=== PATIENT | female | born 1945 | race Asian ===

== ENCOUNTER 2018-04-14 09:45 | Outpatient (CLI) | payer MEDICARE ==
--- NOTE | 2018-04-14 13:12 | XRAY Report ---
Reason: PX IN RT LOWER LEG Procedure Date: 04/14/2018 Accession Number: [id number] / [id number] Procedure: WCP - Tib/Fib RT CPT Code: FULL RESULT: EXAM: RIGHT TIBIA/FIBULA RADIOGRAPHY EXAM DATE: 04/14/2018 09:55 AM. CLINICAL HISTORY: Pain in right lower leg. COMPARISON: None. TECHNIQUE: 2 views. FINDINGS: Bones: Normal. No fracture or bone lesion. Joints: The visualized knee and ankle joints are normal. No effusions. Soft Tissues: Normal. No soft tissue swelling. IMPRESSION: Normal tibia/fibula radiography. [facility]
== END 2018-04-14 09:46 | disposition home or self-care (01) ==
LOC: DI.WCP 09:45
PROVIDERS: ATTEND Family Medicine
DX: M79.661 Pain in right lower leg (principal)

== ENCOUNTER 2020-05-23 13:46 | Outpatient (CLI) | payer MEDICARE ==
--- NOTE | 2020-05-23 15:12 | XRAY Report ---
PROCEDURE: Knee 3 View RT INDICATIONS: R KNEE PX TECHNIQUE: 3 views of the right knee(s) were acquired. COMPARISON: None. FINDINGS: Bones: No fractures or dislocations. No suspicious bony lesions. Mild tricompartment articular ost eophyte formation. Soft tissues: No joint effusion. No suspicious soft tissue calcifications. IMPRESSION: Osteoarthritis. No acute fracture. No osseous lesion. If symptoms and/or clinical suspic ion for pathology continue, further assessment with repeat plain films, or advanced imaging (e.g., CT , MRI, or bone scan) is recommended for further assessment. Reviewed by: Jamarcus Morrow MD on 05/23/2020 3:10 PM PDT Approved by: Jamarcus Morrow MD on 05/23/2020 3:10 PM PDT Station ID: [id number]
== END 2020-05-23 13:47 | disposition home or self-care (01) ==
LOC: DI.N 13:46
PROVIDERS: ATTEND Family Medicine
DX: M17.11 Unilateral primary osteoarthritis, right knee (principal)

== ENCOUNTER 2023-03-27 15:00 | Outpatient (CLI) | payer MEDICARE ==
[2023-03-27 15:28] LABS: BASOPHILS % (AUTO) 0.3 %; EOSINOPHILS % (AUTO) 0.3 %; HCT - HEMATOCRIT 39.4 % (37.0-47.0); HGB - HEMOGLOBIN 12.6 g/dL (12.0-16.0); LYMPHOCYTES # (AUTO) 1.7 10^3/uL (1.5-3.5); LYMPHOCYTES % (AUTO) 22.3 %; MEAN CORPUSCULAR HEMOGLOBIN 27.4 pg (27.0-31.0); MEAN CORPUSCULAR VOLUME 85.7 fL (81.0-99.0); MEAN PLATELET VOLUME 9.8 fL (7.9-10.8); MONOCYTES # (AUTO) 0.5 10^3/uL (0.0-1.0); MONOCYTES % (AUTO) 6.9 %; NEUTROPHILS # (AUTO) 5.3 10^3/uL (1.5-6.6); NEUTROPHILS % (AUTO) 69.9 %; PLT - PLATELET COUNT 247 10^3/uL (130-450); RED CELL DISTRIBUTION WIDTH 16.3 % (12.0-15.0); WHITE BLOOD COUNT 7.6 x10^3/uL (4.8-10.8)
[2023-03-27 16:04] LABS: CRP - C-REACTIVE PROTEIN 2.1 mg/dL (<0.5)
[2023-03-27 17:22] LABS: THYROID STIMULATING HORMONE 0.25 uIU/mL (0.34-5.60)
== END 2023-03-27 15:01 | disposition home or self-care (01) ==
LOC: LAB 15:00
PROVIDERS: ATTEND Physician Assistant Medical
DX: U07.1 COVID-19 (principal)
CPT/HCPCS: 36415; 84443; 85025; 86140; 87635

== ENCOUNTER 2023-06-23 13:53 | Outpatient (CLI) | payer MEDICARE ==
--- NOTE | 2023-06-23 17:15 | XRAY Report ---
PROCEDURE: Tib/Fib RT INDICATIONS: RIGHT LEG PAIN TECHNIQUE: 2 views of the tibia and fibula were acquired. COMPARISON: Right knee radiograph dated 05/23/2020. FINDINGS: Bones: No fractures or dislocations. Mild to moderate tricompartment osteoarthritis in right knee is seen more notably medial femoral tibial compartment. No suspicious bony lesions. Soft tissues: No suspicious soft tissue calcifications or masses. IMPRESSION: No acute bony abnormality. No gross soft tissue abnormalities. Mild to moderate tricompartment osteoa rthritis in right knee. Reviewed by: Peterson Nickerson MD on 06/23/2023 5:14 PM PDT Approved by: Peterson Nickerson MD on 06/23/2023 5:14 PM PDT Station ID: [id number]
== END 2023-06-23 13:54 | disposition home or self-care (01) ==
LOC: DI 13:53
PROVIDERS: ATTEND Physician Assistant Surgical
DX: M17.11 Unilateral primary osteoarthritis, right knee (principal)